=== PATIENT | male | born 1955 | race Caucasian/White ===

== ENCOUNTER 2023-05-06 07:45 | Day surgery (SDC) | payer MEDICARE ==
[2023-05-04 09:36] VITALS: BP 126/76
[~2023-05-06] VITALS: Ht 185.4 cm; Wt 103.0 kg
[~2023-05-06 07:45] MED LIST: HYDROCHLOROTHIA25 MG PO; LOSARTAN-HCTZ1 EAC1 PO; METFORMIN HCL500 M2 PO; OZEMPIC0.25 MG/02 SQ; POTASSIUM CHLO20 ME2 PO; SIMVASTATIN10 MG PO; TAMSULOSIN HCL0.4 MG PO
[2023-05-06 08:12] VITALS: BP 147/83
[2023-05-06 10:55] VITALS: BP 168/98
--- NOTE | 2023-05-06 10:55 | NUR ---
05/06/23 1055 Evelin Reeves 1024 PT ARRIVED IN PACU SLEEPY WITH NO C/O'S. 1030 ICE TO ABD. 1040 PT TAKING SIPS OF WATER AND TALKING TO STAFF. 1050 TO DS. REPORT GIVEN TO RN. AT BEDSIDE.
--- NOTE | 2023-05-06 11:36 | NUR ---
1055: PATIENT BACK IN DAY SURGERY ROOM FROM PACU. DENIES PAIN. VS CHECKED. IV SITE WNL. SCDs ON. MID ABDOMEN DRESING CLEAN, DRY AND INTACT. ICE PACK TO SURGICAL SITE. TOLERATING ICE WATER. LUNCH ORDERED FOR PATIENT. GIVEN ORANGE JUICE PER PATIENT REQUEST. CALL LIGHT WITHIN REACH. AT BEDSIDE. 1130: TOLERATED LUNCH. C/O SOME BURNING AT SURGICAL SITE. DENIES NEED FOR PAIN MEDICATION AT THIS TIME. AT BEDSIDE. CALL LIGHT WITHIN REACH.
[2023-05-06] MEDS ORDERED: HYDROCODON-ACE1 EAC8 PO (11:45)
[2023-05-06 11:58] VITALS: BP 142/76
--- NOTE | 2023-05-06 12:02 | NUR ---
VS CHECKED. MEDICATED FOR PAIN WITH 1 TAB OF NORCO. IV SALINE LOCKED. CALL LIGHT WITHIN REACH. AT BEDSIDE.
--- NOTE | 2023-05-06 12:39 | OR ---
[facility] [address] [place], [place] [address] Signed DATE OF OPERATION: 05/06/2023 SURGEON: Yamilet Schaefer MD PREOPERATIVE DIAGNOSIS: Incarcerated umbilical hernia (10 mm). POSTOPERATIVE DIAGNOSIS: Incarcerated umbilical hernia (10 mm). PROCEDURE: Primary umbilical herniorrhaphy with intra-abdominal Ventralex mesh (4.3 cm). ESTIMATED BLOOD LOSS: None. INDICATIONS: Douglas is a 67-year-old diabetic gentleman, asked to see me for a symptomatic incarcerated umbilical hernia. He said he was moving heavy [id number] up onto his rack into his pickup truck. He felt something at the umbilicus. He went to his primary care provider. He said it has been bothering him now for a couple of months. He remembers Dr. Bautista did his laparoscopic cholecystectomy with a supraumbilical transverse incision. Because of his ongoing symptoms and the fact that it is incarcerated, he had been asked to see me as a local general surgeon. In the office, I could easily see and palpate the incarcerated umbilical hernia. We were not able to reduce it. It is tender. It appears to be directly in the base of the umbilicus. I gave Douglas our brochure on hernias. We went through the hernia brochure page by page. I circled the sections relevant to him. We discussed primary suture repair versus mesh repair. He understands expected intraop and postop course. There is risk of surgery including, but not limited to bleeding, infection, scarring, change in contour of the skin, damage to bowel, recurrent hernias, chronic pain, and other unforeseen comorbidities. He had expressed understanding and wished to proceed. PROCEDURE NOTE: I met with Douglas in our preop area along with his . We all agreed on the umbilicus and marked it appropriately. After this, Douglas was taken into the operating room and placed in the supine position under general endotracheal tube anesthesia. He was given preoperative antibiotics along with subcutaneous heparin. SCDs were utilized. He was then prepped and draped in the usual sterile fashion. Even then, we could not reduce the hernia. We utilized his previous supraumbilical transverse incision. We opened it Electronically Signed By: YAMILET SCHAEFER MD 05/06/23 1239 PATIENT NAME: DOUGLAS ETIENNE OPERATIVE REPORT DATE OF : 55 REPORT #: [id number] PHYSICIAN: YAMILET SCHAEFRE MD PCP: SHEY OLIVAS REPORT IS CONFIDENTIAL AND NOT TO BE RELEASED WITHOUT AUTHORIZATION [facility] [address] [place], [place] [address] Signed sharply with a 15 blade knife and carried it down and around the umbilicus bluntly and with the cautery. The trocar had been placed through the abdominal wall cephalad to the umbilicus. We cut through some of that scar tissue to free up the skin and the underlying adipose tissue. We then divided the umbilical fascial defect from the hernia sac with the help of the cautery. Even then, we could not reduce the omentum. We simply used our cautery to divide the omentum and passed it off the field. The healthy nonindurated omentum was then easily reduced into the abdomen. He had a 10 mm fascial defect. We therefore chose our 4.3 cm round Ventralex mesh, we placed it in the abdomen brought up flushed against the posterior abdominal wall. We closed the fascial defect with a [id number] #1 Prolene suture as well as a simple #1 Prolene suture through the middle, both sutures went through the tab on the mesh to help hold it in place. The tab was cut flush through the abdominal wall. We then injected local anesthetic in the skin, subcutaneous tissues and the abdominal wall. The wound was irrigated and suctioned out until clear. We used a 2-0 PDS suture to bring the umbilical skin back down to the midline fascia with good cosmetic result. The dermis was reapproximated with interrupted 3-0 subcuticular and Monocryl sutures. The skin edges were reapproximated with running 5-0 fast absorbing plain gut suture. Dry gauze and tape was then applied. Douglas was then awakened from his anesthesia, extubated in the OR, and taken to recovery room in stable condition. Yamilet Schaefer MD ALB/MODL /[id number] cc: AME Beard MD Copies: SHEY OLIVAS ANDREW L MD ~ Electronically Signed By: YAMILET SCHAEFER MD 05/06/23 1239 PATIENT NAME: DOUGLAS ETIENNE OPERATIVE REPORT DATE OF : 55 REPORT #: [id number] PHYSICIAN: YAMILET SCHAEFER MD PCP: SALVERDA,SHEY CHARGE MACHINE OPERATOR REPORT IS CONFIDENTIAL AND NOT TO BE RELEASED WITHOUT AUTHORIZATION
--- NOTE | 2023-05-06 12:46 | NUR ---
UP TO BR AMB WELL. DENIES LIGHT HEADINESS OR DIZZINES. VOIDS 200MLS JUANITA URINE. REQUESTS TO GO HOME.
[2023-05-06 12:49] VITALS: BP 159/87
== END 2023-05-06 12:55 | disposition home or self-care (01) ==
LOC: DS 07:45
PROVIDERS: ATTEND Colon & Rectal Surgery
PROC: 0WUF0JZ Supplement Abdominal Wall with Synthetic Substitute, Open Approach (ICD-10-PCS; principal; 2023-05-06 09:00)
DX: K42.0 Umbilical hernia with obstruction, without gangrene (principal); E11.9 Type 2 diabetes mellitus without complications; I10 Essential (primary) hypertension; N40.0 Benign prostatic hyperplasia without lower urinary tract symptoms; E78.5 Hyperlipidemia, unspecified
CPT/HCPCS: 00750; C1781; J0131; J0690; J1100; J1644; J2001; J2405; J2704; J3010; J3490; J7121